=== PATIENT | male | born 1970 | race Caucasian/White ===

== ENCOUNTER 2017-02-02 11:16 | Emergency (ER) | payer BC ==
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
== END 2017-02-02 12:18 | disposition home or self-care (01) ==
LOC: ER 11:16
DX: S46.912A Strain of unspecified muscle, fascia and tendon at shoulder and upper arm level, left arm, initial encounter (principal); W18.09XA Striking against other object with subsequent fall, initial encounter; Y99.0 Civilian activity done for income or pay
CPT/HCPCS: 99283

== ENCOUNTER 2017-02-08 11:29 | Emergency (ER) | payer BC ==
--- NOTE | 2017-02-08 11:44 | Emergency Department Record ---
History of Present Illness - General Chief Complaint: Recheck - Other Stated Complaint: RECHECK Time Seen by Provider: 02/08/17 11:33 Source: Patient Mode of arrival: Ambulatory Limitations: No limitations - History of Present Illness Initial Comments: 46 yo male presents for a recheck of his left shoulder pain. He was placed off work 5 days. He does not have a PCP to clear him for work. He had an XR on the initial visit that demonstrate arthritis. He has well controlled pain and wants to return to work. He feels like he can perform his normal work duties at this point. He requests clearance. Complaint: Wound re-check -: Days(s) (5) Initial Visit For: Other Symptoms Since Prior Visit: No new symptoms, Improved Associated Symptoms: None - Related Data Previous Rx's Medication Instructions Recorded Naproxen [Naprosyn] 500 mg PO Q12H #30 tab. 02/02/17 Allergies Allergy/AdvReac Type Severity Reaction Status Date / Time No Known Drug Allergies Allergy Verified 12/09/15 15:22 Review of Systems Constitutional: Denies: Chills, Fever, Malaise, Weakness Eyes: Denies: Eye discharge, Eye pain ENT: Denies: Congestion, Throat pain Respiratory: Denies: Cough Cardiovascular: Denies: Chest pain, Syncope Endocrine: Denies: Fatigue Gastrointestinal: Denies: Abdominal pain, Diarrhea, Nausea, Vomiting Genitourinary: Denies: Dysuria, Frequency, Hematuria Musculoskeletal: Reports: As per HPI, Arthralgia, Myalgia. Denies: Back pain Skin: Denies: Bruising, Change in color, Rash Neurological: Denies: Headache, Numbness, Vertigo, Weakness Psychiatric: Denies: Anxiety Hematological/Lymphatic: Denies: Blood Clots, Easy bleeding, Easy bruising, Swollen glands Past Medical History - SOCIAL HISTORY Smoking Status: Current every day smoker Drug Use: None - RESPIRATORY Hx Respiratory Disorders: No - CARDIOVASCULAR Hx Cardio Disorders: No - NEURO Hx Neuro Disorders: No - Hx Genitourinary Disorders: No - ENDOCRINE Hx Endocrine Disorders: No - MUSCULOSKELETAL Hx Musculoskeletal Disorders: No - PSYCH Hx Psych Problems: No - HEMATOLOGY/ONCOLOGY Hx Hematology/Oncology Disorders: No Physical Exam - General General Appearance: Alert, Oriented x3, Cooperative, No acute distress Limitations: No limitations - Head Head exam: Atraumatic, Normal inspection - Eye Eye exam: Normal appearance. negative: Conjunctival injection, Periorbital swelling - ENT ENT exam: Normal exam, Mucous membranes moist, Normal orophraynx Ear exam: Normal external inspection Nasal Exam: Normal inspection Mouth exam: Normal external inspection - Neck Neck exam: Normal inspection - Respiratory Respiratory exam: Normal lung sounds bilaterally. negative: Respiratory distress - Cardiovascular Cardiovascular Exam: Regular rate, Normal rhythm, Normal heart sounds Peripheral Pulses: 2+: Radial (L) - Rectal Rectal exam: Deferred - exam: Deferred - Extremities Extremities exam: Normal inspection, Full ROM, Tenderness (very mild posterior shoulder tenderness, fullROM, full credit card clerk, biceps and triceps, no limitations). negative: Joint swelling, Normal capillary refill, Pedal edema - Back Back exam: Reports: Normal inspection, Full ROM. Denies: Muscle spasm, Rash noted, Tenderness - Neurological Neurological exam: Alert, Normal gait, Oriented X3. negative: Motor sensory deficit - Psychiatric Psychiatric exam: Normal affect, Normal mood - Skin Skin exam: Dry, Intact, Normal color, Warm Course - Reevaluation(s) Reevaluation #1: The patient requests clearance He has full ROM without limitation DC with clearance to return to work 02/08/17 11:43 Disposition Disposition: Discharge Clinical Impression: Strain of shoulder, left Qualifiers: Encounter type: initial encounter Qualified Code(s): S46.912A - Strain of unspecified muscle, fascia and tendon at shoulder and upper arm level, left arm , initial encounter Disposition: Home, Self-Care Condition: (1) Good Instructions: Osteoarthritis (ED), Shoulder Sprain (ED) Additional Instructions: Return to work Ice if sore after use Return if you have any concerns or questions Forms: Patient Portal Access Time of Disposition: 11:44 Quality - Quality Measures Quality Measures: N/A - Blood Pressure Screening Does Patient Have Any of the Following: No Systolic Measurement: ~ Screening for High Blood Pressure: < Pre-Hypertensive BP, F/U Documented > [ G8950] Pre-Hypertensive Follow-up Interventions: Referral to alternative/primary care provider.
== END 2017-02-08 12:00 | disposition home or self-care (01) ==
LOC: ER 11:29
DX: S46.912A Strain of unspecified muscle, fascia and tendon at shoulder and upper arm level, left arm, initial encounter (principal); X58.XXXA Exposure to other specified factors, initial encounter
CPT/HCPCS: 99282

== ENCOUNTER 2018-05-27 08:46 | Emergency (ER) | payer SELFPAY ==
[2018-05-27] MEDS ORDERED: Diph,Pert(Acell),Tet Vac 0.5 ML SYR IM ONE (08:59)
--- NOTE | 2018-05-27 09:05 | Emergency Department Record ---
History of Present Illness - General Chief Complaint: Ankle/Foot Injury Stated Complaint: RT FOOT STEPPED ON NAIL Time Seen by Provider: 05/27/18 08:56 Source: Patient Mode of Arrival: Ambulatory Limitations: No limitations - History of Present Illness Initial Comments: 47yo male presents with right heal pain. He stepped on a nail two days ago. The nail went through his boot. He is uncertain when his last tetanus shot was given. He has developed some mild swelling and redness. No fevers or chills. The nail was a new nail. Onset/Timin -: Days(s) Injury: Foot: Right Type of Injury: Puncture wound Place: Work Severity: Moderate Improves With: Nothing Worsens With: Nothing Context: Stepped on nail - Related Data Previous Rx's Medication Instructions Recorded Cephalexin [Keflex] 500 mg PO QID #28 cap 05/27/18 Ciprofloxacin HCl [Cipro] 1 tab PO BID #14 tab 05/27/18 Allergies Allergy/AdvReac Type Severity Reaction Status Date / Time No Known Drug Allergies Allergy Verified 05/27/18 08:57 Travel Screening - Travel/Exposure Within Last 30 Days Have you traveled within the last 30 days?: No Location Detail:: [place] Review of Systems Constitutional: Denies: Chills, Fever, Night sweats, Weakness Eyes: Denies: Vision change ENT: Denies: Congestion Respiratory: Denies: Cough Cardiovascular: Denies: Edema Endocrine: Denies: Fatigue Gastrointestinal: Denies: Abdominal pain, Diarrhea, Nausea, Vomiting Genitourinary: Denies: Dysuria, Frequency Musculoskeletal: Reports: Arthralgia Skin: Denies: Bruising, Change in color, Rash Neurological: Denies: Headache Psychiatric: Denies: Anxiety Hematological/Lymphatic: Denies: Easy bleeding, Easy bruising Past Medical History - SOCIAL HISTORY Smoking Status: Current every day smoker Alcohol Use: None Drug Use: None - RESPIRATORY Hx Respiratory Disorders: No - CARDIOVASCULAR Hx Cardio Disorders: No - NEURO Hx Neuro Disorders: No - GI Hx GI Disorders: No - Hx Genitourinary Disorders: No - ENDOCRINE Hx Endocrine Disorders: No - MUSCULOSKELETAL Hx Musculoskeletal Disorders: No - PSYCH Hx Psych Problems: No - HEMATOLOGY/ONCOLOGY Hx Hematology/Oncology Disorders: No Family Medical History Any Significant Family History?: No Physical Exam - General General Appearance: Alert, Oriented x3, Cooperative, No acute distress Limitations: No limitations - Head Head exam: Atraumatic, Normal inspection - Eye Eye exam: Normal appearance - ENT ENT exam: Normal exam Ear exam: Normal external inspection Nasal Exam: Normal inspection Mouth exam: Normal external inspection - Neck Neck exam: Normal inspection - Extremities Extremities exam: Full ROM, Normal capillary refill, Tenderness. negative: Normal inspection, Calf tenderness, Pedal edema Image of Feet: 1 - site of puncture. mild surrounding erythema and tenderness. no visible FB. no pus of palpable fluctuance - Neurological Neurological exam: Alert, Oriented X3 - Psychiatric Psychiatric exam: Normal affect, Normal mood - Skin Skin exam: Dry, Intact, Normal color, Warm Course Vital Signs 05/27/18 08:53 Temperature 97.8 F Pulse Rate 103 H Respiratory 18 Rate Blood Pressure 145/97 Pulse Ox 98 - Reevaluation(s) Reevaluation #1: The area involved demonstrates mild redness and swelling XR ordered Tetanus updated Antibiotics ordered I discussed with the patient the higher risks of puncture wounds and small number go on to develop bone infection require longer more involved treatment. 05/27/18 09:13 05/27/18 09:39 I and D Procedure I explained that the puncture site should be I and D to assess for FB and pus. I explained that a small area of the thickened surface skin will be removed to allow drainage if needed Betadine prep Bupivacaine 1ml local 11 blade used to open and remove a small area of the calloused skin to allow drainage if needed No pus, No FB noted The area was cleaned and irrigated copiously We discussed returning for a recheck if worse, home care and follow up 05/27/18 14:33 Disposition Disposition: Discharge Clinical Impression: Puncture wound of foot, Cellulitis Disposition: Home, Self-Care Condition: (1) Good Instructions: Puncture Wound (ED) Additional Instructions: Clean the foot twice dialy Take the antibiotics as directed Keep the foot elevated for the next 2-3 days Return if you have spreading redness, pus, fever or concerns that it is worsening Prescriptions: Cephalexin [Keflex] 500 mg PO QID #28 cap Ciprofloxacin HCl [Cipro] 1 tab PO BID #14 tab Referrals: SAGRARIO SOTELO D.[email or web address] [DOCTOR OF PODIATRY MEDICINE] - Forms: Patient Portal Access Time of Disposition: 09:42 Quality - Quality Measures Quality Measures: N/A - Blood Pressure Screening Does Patient Have Any of the Following: No Blood Pressure Classification: Hypertensive Reading Systolic Measurement: 127 Diastolic Measurement: 97 Screening for High Blood Pressure: < Pre-Hypertensive BP, F/U Documented > [ G8950] Pre-Hypertensive Follow-up Interventions: Referral to alternative/primary care provider.
[2018-05-27] MEDS ORDERED: CIPROFLOXACIN HCL 500 MG TABLET PO ONE (09:12)
[2018-05-27] MEDS ORDERED: CEPHALEXIN 500 MG CAPSULE PO STA (09:12)
[2018-05-27] MEDS ORDERED: HYDROCODONE/APAP 5/325MG TABLET PO ONE (09:42)
--- NOTE | 2018-05-29 06:36 | RADIOLOGY REPORT ---
DATE: 05/27/2018 at 9:09 a.m. EXAM: RIGHT FOOT. HISTORY: STEPPED ON A NAIL TWO DAYS AGO. PUNCTURE WOUND AND PAIN NEAR THE HEEL. TECHNIQUE: Three views of the right foot were obtained. COMPARISON: None. ENCOUNTER: Initial. FINDINGS: There is no radiopaque foreign body or soft tissue air. There is no visible acute fracture or osseous erosion. There is an old, ununited fracture at the base of the fifth metatarsal. Old fracture fragments are also noted adjacent to the interphalangeal joint of the great toe and first metatarsophalangeal joint. There are mild arthritic changes of the first metatarsophalangeal and interphalangeal joints. IMPRESSION: 1. NO RADIOPAQUE FOREIGN BODY OR ACUTE OSSEOUS ABNORMALITY. 2. CHRONIC FINDINGS ABOVE. JOB NUMBER: [id number] [facility]
== END 2018-05-27 09:55 | disposition home or self-care (01) ==
LOC: ER 08:46
DX: S91.331A Puncture wound without foreign body, right foot, initial encounter (principal); L03.115 Cellulitis of right lower limb; W45.0XXA Nail entering through skin, initial encounter; Y99.0 Civilian activity done for income or pay; F17.210 Nicotine dependence, cigarettes, uncomplicated
CPT/HCPCS: 10060; 90715; 96372; 99283; 99284